=== PATIENT | male | born 1990 | race African-American/Black ===

== ENCOUNTER 2017-12-06 12:00 | Emergency (ER) | payer MEDICAID, OTHER ==
[2017-12-06] MEDS: HYDROCODONE/APAP (5/325) TAB PO (12:52)
[2017-12-06] MEDS: IBUPROFEN 600 MG TAB PO (12:54)
== END 2017-12-06 14:20 | disposition home or self-care (01) ==
LOC: FTE 14:20
DX: S02.651A Fracture of angle of right mandible, initial encounter for closed fracture (principal); F17.210 Nicotine dependence, cigarettes, uncomplicated; Y04.0XXA Assault by unarmed brawl or fight, initial encounter
CPT/HCPCS: 70486; 99284-25